=== PATIENT | male | born 1935 | race Caucasian/White ===

== ENCOUNTER 2016-10-17 07:39 | Day surgery (SDC) | payer OTHER ==
[~2016-10-17] VITALS: Ht 175.3 cm; Wt 103.8 kg
[~2016-10-17 07:39] MED LIST: ATENOLOL50 MG PO; COZAAR50 MG PO; CYANOCOBALAM1000 MCG PO; FUROSEMIDE20 MG PO; HYDROCHLOROTH12.5 M3 PO; LOSARTAN POTAS100 MG PO; METAMUCIL PACKE1 PKT PO; METOPROLOL TART25 MG PO; OMEGA 3 1,0001 EACH PO; OMEGA-31000 M1 PO; PRADAXA150 MG PO; SIMVASTATIN20 MG PO; UROXATRAL10 MG PO; VITAMIN B12-FO1 EACH PO; XALATAN2.5 ML BOTH EYES
[2016-10-17 13:52] VITALS: BP 168/72
[2016-10-17 16:20] VITALS: BP 156/70
[2016-10-17 19:44] VITALS: BP 158/88
[2016-10-17 23:22] VITALS: BP 134/65
[2016-10-18 03:23] VITALS: BP 155/87
[2016-10-18 07:48] VITALS: BP 174/86
[2016-10-18] MEDS ORDERED: METOPROLOL TART25 MG PO (10:49)
[2016-10-18 10:53] VITALS: BP 164/70
== END 2016-10-18 13:00 | disposition home or self-care (01) ==
LOC: CATH 07:39 → 2SOUTH 11:30 → 4EAST 11:30 → 2SOUTH 11:30 → 4EAST 13:28
PROC: 0JH604Z Insertion of Pacemaker, Single Chamber into Chest Subcutaneous Tissue and Fascia, Open Approach (ICD-10-PCS; principal; 2016-10-17)
PROC: 3E0102A Introduction of Anti-Infective Envelope into Subcutaneous Tissue, Open Approach (ICD-10-PCS; principal; 2016-10-17)
PROC: 02HK3JZ Insertion of Pacemaker Lead into Right Ventricle, Percutaneous Approach (ICD-10-PCS; principal; 2016-10-17)
DX: I49.5 Sick sinus syndrome (principal); E11.22 Type 2 diabetes mellitus with diabetic chronic kidney disease; I12.9 Hypertensive chronic kidney disease with stage 1 through stage 4 chronic kidney disease, or unspecified chronic kidney disease; N18.9 Chronic kidney disease, unspecified; I48.91 Unspecified atrial fibrillation; Z86.73 Personal history of transient ischemic attack (TIA), and cerebral infarction without residual deficits
CPT/HCPCS: 71010; 93005; C1786; C1894; C1898; G0378; J0690; J2250; J3010; S0020